=== PATIENT | male | born 1935 | race Caucasian/White ===

== ENCOUNTER 2017-10-26 13:37 | Emergency (ER) | payer OTHER, BC, MEDICARE ==
[~2017-10-26 13:37] MED LIST: ACETAMINOPHEN325 M2 PO; ACTOS30 M1 PO; ACTOS30 MG PO; ALLOPURINOL300 M1 PO; ALLOPURINOL300 MG PO; ATIVAN0.5 M1 PO; ATIVAN0.5 MG PO; ATORVASTATIN CA20 M1 PO; ATORVASTATIN CA20 MG PO; AUGMENTIN 500-1 EACH PO; AVODART0.5 M1 PO; CARBIDOPA-LEVO1 EAC7 PO; CARBIDOPA/LEVOD1 TA1 PO; CARBIDOPA25 MG PO; DORZOLAMIDE-TIM10 ML OPH; FISH OIL 1,2001 EACH PO; I-CAPS WITH LU1 EACH PO; METFORMIN HCL500 M3 PO; METFORMIN1000 MG PO; MIRALAX17 G1 PO; SINEMET PO; SYNTHROID75 MCG PO; TAMIFLU30 MG PO; TRAZODONE HCL50 M1 PO; TYLENOL EXTRA500 M2 PO; VITAMIN C1000 M4 PO; VITAMIN D31000 UNI2 PO; VITAMIN E1000 UNI3 PO
[2017-10-26 14:18] LABS: ABSOLUTE BASOPHIL COUNT 0.1 /CUMM (0.0-0.2); ABSOLUTE EOSINOPHIL COUNT 0.2 /CUMM (0.0-0.7); ABSOLUTE GRANULOCYTE CT 4.9 /CUMM (1.4-6.5); ABSOLUTE LYMPH COUNT 2.2 /CUMM (1.2-3.4); ABSOLUTE MONOCYTE COUNT 0.7 /CUMM (0.10-0.60); BASOPHIL % 0.6 % (0.0-2.0); EOSINOPHIL % 2.5 % (0-5); GRANULOCYTE % 61.2 % (42.2-75.2); HEMATOCRIT 42.4 % (42-52); MEAN CORPUSCULAR HGB CONC 33.5 G/DL (33.0-37.0); MEAN CORPUSCULAR VOLUME 83.8 FL (80.0-94.0); MEAN PLATELET VOLUME 7.4 FL (7.4-10.4); PLATELET COUNT 270 /CUMM (130-400); RBC DISTRIBUTION WIDTH 15.1 % (11.5-14.5); RED BLOOD CELL CT 5.06 /CUMM (4.70-6.10); WHITE BLOOD CELL COUNT 8.1 /CUMM (4.8-10.8)
[2017-10-26] MEDS ORDERED: CARBIDOPA-LEVO1 EAC7 PO ×3 (14:38→14:39)
[2017-10-26] MEDS ORDERED: TRUSOPT10 ML OPH (14:41)
--- NOTE | 2017-10-26 14:49 | RADIOLOGY REPORT ---
EXAMINATION: XR PORTABLE CHEST CLINICAL INFORMATION: Hypotensive. Acute mental status changes. Presumptive diagnosis of pneumonia, CHF. COMPARISON: Chest x-ray dated 12/13/2015. TECHNIQUE: Portable AP semierect view of the chest was obtained. FINDINGS: EKG leads overlie the chest. The cardiomediastinal silhouette is borderline enlarged, unchanged. Ectasia and tortuosity of the aorta is also unchanged allowing for differences in technique. Low lung volumes are noted with slight elevation of the right hemidiaphragm and bibasilar linear opacities, consistent with atelectasis. No focal consolidation, effusion or pneumothorax. No evidence of pulmonary edema. Diffuse osteopenia. Prominent degenerative changes in both shoulder joints with superior subluxations of both humeral heads seen, suggesting underlying chronic rotator cuff tears. IMPRESSION: 1. Low lung volumes with bibasilar atelectatic changes. 2. Borderline cardiomegaly and ectatic aorta again noted.
--- NOTE | 2017-10-26 14:52 | ED GENERAL ADULT ---
History of Present Illness General Chief Complaint: General Adult Stated Complaint: BIBA FOR HYPOTENSIVE Source: patient, family, EMS Exam Limitations: no limitations Allergies Coded Allergies: NO KNOWN ALLERGIES (05/04/14) Reconcile Medications Allopurinol 300 MG TABLET 1 TAB PO DAILY GOUT (Reported) Ascorbic Acid (Vitamin C) 1,000 MG TABLET 1 TAB PO DAILY SUPPLEMENT (Reported ) Carbidopa/Levodopa (Carbidopa-Levodopa 25-100 Tab) 25 MG-100 MG TABLET 2 TAB PO DAILY PARKINSONS (Reported) Carbidopa/Levodopa (Carbidopa-Levodopa 25-100 Tab) 25 MG-100 MG TABLET 1 TAB PO 1300 PARKINSONS (Reported) Carbidopa/Levodopa (Carbidopa-Levodopa 25-100 Tab) 25 MG-100 MG TABLET 1 TAB PO 1800 PARKINSONS (Reported) Cholecalciferol (Vitamin D3) 1,000 UNIT TABLET 1 TAB PO DAILY VITAMIN SUPPORT (Reported) Dorzolamide HCl (Trusopt) 2 % DROPS 1 DROP OPH TID EYE (Reported) Fish Oil/Dha/Epa (Fish Oil 1,200 MG Fish Oil) 1 EACH CAPSULE 1 CAP PO DAILY SUPPLEMENT (Reported) Levothyroxine Sodium (Synthroid) 75 MCG TABLET 1 TAB PO DAILY AC THYROID ( Reported) Metformin HCl 500 MG TABLET 1 TAB PO BID DIABETES (Reported) Vitamin E 1,000 UNIT CAPSULE 1 CAP PO DAILY SUPPLEMENT (Reported) Triage Note: BIBA FROM HOME, SENT BY VISITING NURSE FOR HYPOTENSION, PER EMS, INITIAL BP WAS 88/62, NOW 110/62 AFTER 200 ML NS. AWAKE, ANSWEREING QUESTIONS WITH SLURRED SPEECH. BILATERAL HAND TREMORS NOTED. DENIES PAIN. Triage Nurses Notes Reviewed? yes Onset: Abrupt Duration: day(s): (1), better, gone now Timing: recent history Injury Environment: home Severity: mild, moderate No Modifying Factors: none HPI: 82-year-old male history of Parkinson's disease, hypothyroidism, diabetes presents for evaluation of hypotension. Patient was at home when his visiting nurse took his blood pressure and found to be 86 over 40s. EMS was called to confirm his blood pressure. They started him on IV fluids and his blood pressure improved to 100s over 60s after 200 mL. Patient has a history of similar symptoms in the past. He does not eat or drink very much and gets dehydrated easily. According to the family he was at the bedside his mental status is at baseline. Patient offers no complaints of chest pain shortness of breath fever. He does not walk much at baseline without significant help. No abdominal pain chest pain cough or urinary symptoms no rashes. (Maxx Garcia) Vital Signs & Intake/Output Vital Signs & Intake/Output Vital Signs Date Time Temp Pulse Resp B/P B/P Pulse O2 O2 Flow FiO2 Mean Ox Delivery Rate 10/26 1530 79 19 136/80 96 Room Air 10/26 1343 97.8 82 20 113/68 98 Room Air ED Intake and Output 10/27 0000 10/26 1200 Intake Total 200 Output Total Balance 200 Intake, IV 200 (Fátima TAM,Nathanael Mccarthy) Past History Travel History Traveled to [place] past 21 day No Medical History Any Pertinent Medical History? 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 What is your primary language German Tobacco Use: Cognitive Impairment ETOH Use: 6 Family History Hx Contributory? No (Maxx Garcia) Review of Systems Review of Systems Constitutional: Reports: no symptoms. EENTM: Reports: no symptoms. Respiratory: Reports: no symptoms. Cardiovascular: Reports: no symptoms. GI: Reports: no symptoms. Genitourinary: Reports: no symptoms. Musculoskeletal: Reports: no symptoms. Skin: Reports: no symptoms. Neurological/Psychological: Reports: no symptoms. Hematologic/Endocrine: Reports: no symptoms. Immunologic/Allergic: Reports: no symptoms. All Other Systems: Reviewed and Negative (Maxx Garcia) Physical Exam Physical Exam General Appearance: well developed/nourished, no apparent distress, alert, awake , thin Head: atraumatic, normal appearance Eyes: Bilateral: normal appearance, PERRL, EOMI. Ears, Nose, Throat: hearing grossly normal, moist mucus membranes Neck: normal inspection, supple, full range of motion Respiratory: normal breath sounds, chest non-tender, no respiratory distress, lungs clear Cardiovascular: regular rate/rhythm, normal peripheral pulses Peripheral Pulses: 2+ radial (R), 2+ radial (L) Gastrointestinal: soft, non-tender Back: normal inspection, normal range of motion, no vertebral tenderness Extremities: normal inspection, no edema, patient is moving all extremities equally no joint swelling redness or signs of trauma Neurologic/Psych: no motor/sensory deficits, awake, alert, oriented x 3, normal mood/affect, tremulous Skin: intact, normal color, warm/dry Lymphatic: no anterior cervical edis Core Measures ACS in differential dx? No CVA/TIA Diagnosis: No Sepsis Present: No Sepsis Focused Exam Completed? No (Domenico FABIAN,Maxx) Progress Differential Diagnoses I considered the following diagnoses in my evaluation of the patient: [ Dehydration, electrolyte normality, acute kidney injury, acute coronary syndrome , sepsis, UTI, pneumonia] Diagnostic Imaging: Viewed by Me: Radiology Read. Discussed w/RAD: Radiology Read. CXR Impression: PATIENT: LUIZ VERONICA PRESENT AGE : 82 PATIENT ACCOUNT NO: [id number] : 33 LOCATION: [facility] ORDERING PHYSICIAN: Maxx FABIAN SERVICE DATE: 10/26/17 EXAM TYPE: RAD - XRY- PORTABLE CHEST XRAY EXAMINATION: XR PORTABLE CHEST CLINICAL INFORMATION: Hypotensive. Acute mental status changes. Presumptive diagnosis of pneumonia, CHF. COMPARISON: Chest x-ray dated 12/13/2015. TECHNIQUE: Portable AP semierect view of the chest was obtained. FINDINGS: EKG leads overlie the chest. The cardiomediastinal silhouette is borderline enlarged, unchanged. Ectasia and tortuosity of the aorta is also unchanged allowing for differences in technique. Low lung volumes are noted with slight elevation of the right hemidiaphragm and bibasilar linear opacities, consistent with atelectasis. No focal consolidation, effusion or pneumothorax. No evidence of pulmonary edema. Diffuse osteopenia. Prominent degenerative changes in both shoulder joints with superior subluxations of both humeral heads seen, suggesting underlying chronic rotator cuff tears. IMPRESSION: 1. Low lung volumes with bibasilar atelectatic changes. 2. Borderline cardiomegaly and ectatic aorta again noted. DICTATED BY: Jessica Montes MD DATE/TIME DICTATED:10/26/171441 POWER SHOVEL ENGINEER:KAREN DATE/ TIME TRANSCRIBED:09/17/18 / 1442 CONFIDENTIAL, DO NOT COPY WITHOUT APPROPRIATE AUTHORIZATION. <Electronically signed in Other Vendor System> Initial ED EKG: normal sinus rhythm, LEFT ATRIAL ABN (Domenico FABIAN,Maxx) Plan of Care: Orders Procedure Date/time Status URINALYSIS 10/26 1346 Complete TROPONIN LEVEL 10/26 134 Complete LACTIC ACID 10/26 134 Complete COMPREHENSIVE METABOLIC PANEL 10/26 1346 Complete CBC WITHOUT DIFFERENTIAL 10/26 1346 Complete EKG 10/26 1346 Active Laboratory Tests 10/26/17 1647: Lactic Acid Cancelled 10/26/17 1645: Urine Color YEL, Urine Clarity CLEAR, Urine pH 6.0, Ur Specific [place] 1.020, Urine Protein NEG, Urine Ketones NEG, Urine Nitrite NEG, Urine Bilirubin NEG, Urine Urobilinogen 4.0 H, Ur Leukocyte Esterase NEG, Ur Microscopic EXAM NOT REQUIRED, Urine Hemoglobin NEG, Urine Glucose NEG 10/26/17 1405: Anion Gap 9, Estimated GFR > 60, BUN/Creatinine Ratio 45.0 H, Glucose 130 H, Lactic Acid 1.5, Calcium 9.0, Total Bilirubin 1.2, AST 14 L, ALT 14 L, Alkaline Phosphatase 61, Troponin I < 0.01, Total Protein 6.5, Albumin 3.7, Globulin 2.8, Albumin/Globulin Ratio 1.3, CBC w Diff NO MAN DIFF REQ, RBC 5.06, MCV 83.8, MCH 28.0, MCHC 33.5, RDW 15.1 H, MPV 7.4, Gran % 61.2, Lymphocytes % 27.6, Monocytes % 8.1, Eosinophils % 2.5, Basophils % 0.6, Absolute Granulocytes 4.9, Absolute Lymphocytes 2.2, Absolute Monocytes 0.7 H, Absolute Eosinophils 0.2, Absolute Basophils 0.1 Patient is here for evaluation of hypotension. He offers no other complaints. His blood pressure at home with 80s over 40s. It is rapidly improving after fluids. Mental status is at baseline. Additional fluids lab tests EKG chest x- ray ordered. lab Work is unremarkable. There is no evidence of sepsis or infection. Chest x -ray is unchanged. EKG was read by the machine as atrial fibrillation likely due to the patient's tremors however there are P waves clearly noted. Patient is not tachycardic. The rhythm is regular. Repeat blood pressures have improved to 130s over 70s. Patient remains at his baseline. Advised about the importance of staying hydrated. Follow-up with the primary care doctor discussed return precautions case discussed with Dr. Shine he agrees (Maxx Garcia) (Fátima TAM,Nathanael Mccarthy) Departure Departure Disposition: HOME OR SELF CARE Condition: Stable Clinical Impression Primary Impression: Dehydration Referrals: Miya TAM,Jeanie Rojas (PCP/Family) Additional Instructions: Continue to drink plenty of fluids. Make a follow-up appointment with primary care doctor on Thursday as scheduled. Monitor symptoms return with any concerns. Please go over all results of today's visit with your primary care doctor. Contact your primary care doctor to let them know you were here in the emergency room. There may be nonspecific findings which may not be related to your visit today here in the emergency room but may require further evaluation and chronic monitoring by your primary care doctor. If you had a laceration today the chance of foreign body always remains. You should follow-up with your primary care doctor for recheck in 3-5 days for a wound check. If you had an x-ray done there is a chance that a fracture could have been missed on initial read and you should follow-up with your primary care doctor for repeat x-rays if symptoms persist. If your blood pressure was elevated here in the emergency room please have rechecked by [facility] primary care doctor within the next 48. If you were prescribed a narcotic here in the emergency room or any type of controlled substances you're not allowed to drive while taking this medication or operate any type of heavy machinery. Narcotics can make you feel lightheaded dizziness nausea and can cause constipation. You may need to pick out hand a stool softener. Thank you for choosing [facility] emergency room. Please return to the emergency room immediately if you have any other concerns worsening of symptoms. Departure Forms: Customer Survey General Discharge Information (Maxx Garcia) PA/LITHOGRAPHIC PHOTOGRAPHER APPRENTICE Co-Sign Statement Statement: ED Attending supervision documentation- [X] I saw and evaluated the patient. I have also reviewed all the pertinent lab results and diagnostic results. I agree with the findings and the plan of care as documented in the PA's/LITHOGRAPHIC PHOTOGRAPHER APPRENTICE's documentation. Patient presents for evaluation of a low blood pressure. Upon arrival to the emergency department blood pressure was normal (after discussion with the family the patient does tend to run a normal as opposed to high blood pressure and presents this. Physical examination reveals a somewhat dry-appearing gentleman who is alert but responds to questions slowly. He has a pill-rolling tremor of the extremities consistent with his history of Parkinson disease. Bladder is nonpalpable so I doubt acute urinary retention. [] I have reviewed the ED Record and agree with the PA's/LITHOGRAPHIC PHOTOGRAPHER APPRENTICE's documentation. [] Additions or exceptions (if any) to the PAs/LITHOGRAPHIC PHOTOGRAPHER APPRENTICE's note and plan are summarized below: [] (Fátima TAM,Nathanael Mccarthy) Critical Care Note Critical Care Note Critical Care Time: non-applicable (Maxx Garcia)
[2017-10-26 15:30] VITALS: BP 136/80
== END 2017-10-26 18:12 ==
LOC: ERH 13:37
PROVIDERS: Physician Assistant Medical
DX: E86.0 Dehydration (principal); G20 Parkinson's disease; E78.5 Hyperlipidemia, unspecified; H26.9 Unspecified cataract; N40.0 Benign prostatic hyperplasia without lower urinary tract symptoms; E11.9 Type 2 diabetes mellitus without complications; E03.9 Hypothyroidism, unspecified
CPT/HCPCS: 71045; 81003; 93005; 93010; 96360